=== PATIENT | male | born 1995 | race Caucasian/White ===

== ENCOUNTER 2019-02-09 07:15 | Emergency (ER) | payer OTHER ==
[~2019-02-09] VITALS: Ht 182.9 cm; Wt 111.1 kg
--- OUTSIDE RECORDS SUMMARY | 2019-02-09 07:18 | XMS REPORT | Encounter Summary ---
Author Organization Unknown Address [address] [place] [address] Phone [phone] Reason for Visit Medical Complaint Instructions 1. Folliculitis Keflex 500 mg capsule mupirocin 2 % topical ointment folliculitis: care instructions Discussion Note: None recorded. Plan of Care Patient Instructions . Reminders Provider Appointments None recorded. Lab None recorded. Referral None recorded. Procedures None recorded. Surgeries None recorded. Imaging None recorded. Medications Name Start Date Keflex 500 mg capsule Take 1 capsule every 12 hours by oral route for 7 days. mupirocin 2 % topical ointment APPLY A SMALL AMOUNT TO THE AFFECTED AREA BY TOPICAL ROUTE 3 TIMES PER DAY fo 7 days Medications Administered None recorded. Vitals Height Weight BMI Blood Pressure 6 ft 1 in 235 lbs 31 kg/m2 112/76 mm[Hg] Lab Results None recorded. Allergies Code Code System Name Reaction Severity Status Onset NKDA Problems Name Status Onset Date Source Body Mass Index 30+ - Obesity Active 04/22/2018 Procedures None recorded. Vaccine List None recorded. Social History Smoking Status Former Smoker Past Encounters 12/11/2018 Folliculitis Mita Barnes, [facility]: [address] [place] [address], Ph. History of Present Illness Qpvw-Wnkrvxv-Oyddo-Skin Lesion-Bite 1 Reported By: Patient HPI: Location: ; left lower leg. Quality: painful. Severity: worsening. Duration: ; 4-5 days. Context: no new detergents or skin products, no one else with similar rash, no sting or bite. Aggravating factors: ; benadryl cream helped. Associated Symptoms: no fever/chills, no muscle aches, no nausea, no vomiting, no diarrhea Review of Systems:ROS as noted in the HPI Review of Systems Basic Reported By: Patient Physical Exam Adult Basic, Adult Male Complete Reported By: Patient Constitutional: General Appearance: healthy-appearing, well-nourished, well-developed. Level of Distress: NAD. Ambulation: ambulating normally Lungs: Respiratory effort: no dyspnea, no tachypnea, no use of accessory muscles, no intercostal retractions. Auscultation: breath sounds normal, good air movement Cardiovascular: Heart Auscultation: RRR, no murmurs Skin: Inspection and palpation: ; left lower legs noted several erythema pustules around calf
--- OUTSIDE RECORDS SUMMARY | 2019-02-09 07:18 | XMS REPORT | Encounter Summary ---
Author Organization Unknown Address [address] [place] [address] Phone [phone] Reason for Visit Medical Complaint Instructions 1. Acute left otitis media amoxicillin 875 mg tablet fluticasone 50 mcg/actuation nasal spray,suspension rapid flu (A+B) ear infection (otitis media): care instructions 2. Nasal congestion Afrin (oxymetazoline) 0.05 % nasal spray 3. Upper respiratory infection upper respiratory infection (cold): care instructions Discussion Note: None recorded. Plan of Care Patient Instructions Follow up with PCP or go to ER or urgent care if symptoms get worsen Reminders Provider Appointments None recorded. Lab Rapid Flu (A+B) 07/16/2017 [facility] Referral None recorded. Procedures None recorded. Surgeries None recorded. Imaging None recorded. Medications Name Start Date Afrin (oxymetazoline) 0.05 % nasal spray [place]ford 2 sprays twice a day by intranasal route as needed for 3 days. amoxicillin 875 mg tablet Take 1 tablet every 12 hours by oral route after meals for 7 days. fluticasone 50 mcg/actuation nasal spray,suspension Sanford 1 spray twice a day by intranasal route as directed. Medrol (Diallo) 4 mg tablets in a dose pack take as directed Medications Administered None recorded. Vitals Height Weight BMI Blood Pressure 6 ft 1 in 242 lbs 31.9 kg/m2 124/80 mm[Hg] Lab Results Date Name Specimen Result Interpretation Description Value Range Status Address Rapid Flu (A+B) Influenza a negative [facility]: [address] [place] [address] Influenza B negative [facility]: [address] [place] [address] Allergies Code Code System Name Reaction Severity Status Onset NKDA Problems Name Status Onset Date Source Chlamydial Infection Active Encounter Gonorrhea Active Encounter Pharyngitis Active Encounter Upper Respiratory Infection Active Encounter Acute Urinary Tract Infection Active Encounter Procedures None recorded. Vaccine List None recorded. Social History Smoking Status Former Smoker Past Encounters 07/16/2017 Acute Left Otitis Media; Nasal Congestion; Upper Respiratory Infection CHELSE[facility] Linder-C: [address] [place] [address], Ph. [phone] History of Present Illness Ttufv-Ozltejcgzl-Hhatkmr Reported By: Patient HPI: Location: head/sinuses. Quality: nasal/sinus congestion, dry cough. Duration: 3days. Severity: mild. Onset/Timing: gradual. Context: no sick contacts, no foreign travel, non-smoker. Associated Symptoms: no sputum production, no shortness of breath, no wheezing, no change in number of pillows needed to sleep at night, no sweats, no significant weight gain, no significant weight loss, no sore throat, no vomiting, no diarrhea, no rash, no nausea, no fever, no muscle aches, no headache, morning cough; left ear pressure Review of Systems:ROS as noted in the HPI Review of Systems Basic Reported By: Patient Physical Exam Adult Basic, Adult Male Complete, 14-21 Yr Females, Expanded ENT Exam Reported By: Patient Psychiatric: Mental Status: normal communication w/o aids, normal voice quality Eyes: Lids and Conjunctivae: non-injected. Pupils: PERRLA. EOM: EOMI Zhv-Mdhp-Jjexx-Throat: Nose: no lesions on external nose, nares patent, nasal passages clear, no sinus tenderness, nasal discharge--rhinorrhea; erythematous and edematous left nasal turbinates. Lips, Teeth, and Gums: normal dentition, normal lips, normal gums Lungs: Respiratory effort: no tachypnea. Auscultation: clear to auscultation, no wheezing, no rales/crackles, no rhonchi, no retractions Cardiovascular: Heart Auscultation: no murmurs, no gallops, no rub. Apical impulse: not displaced. Rate and rhythm: regular Musculoskeletal:: Motor Strength and Tone: normal strength, normal symmetry, no synkinesis, no facial tic. Extremities: no cyanosis Skin: Inspection and palpation: no rash Lymph Nodes: Cervical: no palpable lymph node enlargement Head/Face: Inspection: atraumatic, no masses, no lesions, no scarring. Palpation of the TMJ: non-tender, no crepitus Ears: Right External ear: normally formed, free of lesions, no outer ear tenderness, no mastoid tenderness. Left External ear: normally formed, free of lesions, no outer ear tenderness, no mastoid tenderness. Right External auditory canal: normal appearance, no obstruction, no erythema, no discharge. Left External auditory canal: no obstruction, no discharge, erythema. Right Tympanic membrane: pearly montalvo, landmarks clear. Left Tympanic membrane: pearly montalvo, landmarks clear, erythematous Nose: Nasal Skin: no lacerations, no scars. Nasal Mucosa: normal, pink and moist. Turbinates: normal size and confrontation Oral Cavity/Mouth: Posterior pharynx: normal
--- OUTSIDE RECORDS SUMMARY | 2019-02-09 07:18 | XMS REPORT | Encounter Summary ---
Author Organization Unknown Address [address] [place] [address] Phone [phone] Reason for Visit Medical Complaint; uti x 2 days Instructions 1. Acute urinary tract infection Bactrim DS 800 mg-160 mg tablet phenazopyridine 200 mg tablet culture, urine CT + NG DNA, PCR, unspecified specimen urinalysis, dipstick Discussion Note: None recorded. Patient educational handouts: No information available. Plan of Care Patient Instructions Increase fluid intake. Take med as prescribed.Wear loose cotton underwear. May take cranberry juice for preventative. If symptoms worsen follow with severe back pain, chills, fever, abdominal pain, seek ER. Avoid intercourse for now until result comes back. Reminders Provider Appointments None recorded. Lab Culture, Urine 04/09/[address] [facility] [address] + NG DNA, PCR, Unspecified Specimen 04/09/2016 [facility] Urinalysis, Dipstick 04/09/2016 [facility] Referral None recorded. Procedures None recorded. Surgeries None recorded. Imaging None recorded. Medications Name Start Date Bactrim DS 800 mg-160 mg tablet Take 1 tablet every 12 hours by oral route as directed for 5 days. phenazopyridine 200 mg tablet Take 1 tablet 3 times a day by oral route as needed for urinary pain for 2 days. Medications Administered None recorded. Vitals Height Weight BMI Blood Pressure 6 ft 1 in 215 lbs 28.4 120/84 Lab Results Date Name Result Description Value Range Status Urinalysis, Dipstick Color : Vianney Clarity : Cloudy Leukocytes : Large Nitrites : Negative Urobilinogen : Normal Protein : Negative Ph : 6.0 Blood : Moderate Specific [place] : 1.010 Ketones : Negative Bilirubin : Negative Glucose Negative Allergies Name Reaction Severity Onset NKDA Problems Name Status Onset Date Source Pharyngitis Active Encounter Upper Respiratory Infection Active Encounter Acute Urinary Tract Infection Active Encounter Procedures None recorded. Vaccine List None recorded. Social History Smoking Status Former Smoker Past Encounters 04/09/2016 Acute Urinary Tract Infection Nat Ibrahim, [employer]: [address] [facility], [place] [address], Ph. History of Present Illness Tdes-AKK-Dudbruk-Hernia Reported By: Patient HPI: Location: bladder. Quality: burning. Duration: started 2 days. Context: no prior history of STDs, no known exposure to STD, sexually active, heterosexual. Modifying factors OTC medication. Associated Symptoms: no fever/chills, no penile lesions/sores, no scrotal lesions/sores, no flank pain, no jaundice, no blood in the urine, no pain during urination, clear penile discharge, burning sensation during urination Review of Systems Basic Reported By: Patient Constitutional: Constitutional: no fever Eyes: Eyes: no eye complaints Hhrc-Xkjv-Qywak-Throat: Ears: no ear complaints. Nose: no nose/sinus problems. Mouth/Throat: no sore throat, no bleeding gums, no mouth complaints, no teeth problems Cardiovascular: Cardiovascular: no chest pain, no shortness of breath, no known heart murmur Respiratory: Respiratory: no cough, no wheezing, no shortness of breath Gastrointestinal: Gastrointestinal: no abdominal pain, no vomiting / diarrhea Genitourinary: Genitourinary: no discharge, dysuria Musculoskeletal: Musculoskeletal: no muscle aches, no muscle weakness, no arthralgias/joint pain, no back pain Skin: Skin: no abnormal / changing mole, no jaundice, no rashes Neurologic: Neurologic: no loss of consciousness, no weakness, no numbness, no seizures, no dizziness, no headaches Physical Exam Adult Basic, Adult Male Complete Constitutional: General Appearance: healthy-appearing, well-nourished, well-developed. Level of Distress: NAD. Ambulation: ambulating normally Psychiatric: Mental Status: active and alert. Orientation: to time, to place, to person Abdomen: Bowel Sounds: normal. Inspection and Palpation: soft, no tenderness, no guarding, no rebound tenderness, no masses, no CVA tenderness. Hernia: none palpable Male : Penis: no lesions, discharge. Scrotum: no swelling, no tenderness. Testes: palpable bilaterally, not enlarged
--- OUTSIDE RECORDS SUMMARY | 2019-02-09 07:18 | XMS REPORT | Encounter Summary ---
Author Organization Unknown Address [address] [place] [address] Phone [phone] Reason for Visit Medical Complaint Instructions 1. Streptococcal sore throat rapid strep group A, throat strep throat: care instructions amoxicillin 875 mg tablet 2. Acute upper respiratory infection upper respiratory infection (cold): care instructions 3. Body mass index 30+ - obesity A healthy lifestyle: care instructions Discussion Note: None recorded. Plan of Care Patient Instructions See care instructions provided. Reminders Provider Appointments None recorded. Lab Rapid Strep Group a, Throat 12/05/2017 [facility] Referral None recorded. Procedures None recorded. Surgeries None recorded. Imaging None recorded. Medications Name Start Date amoxicillin 875 mg tablet Take 1 tablet every 12 hours by oral route after meals for 10 days. Medications Administered None recorded. Vitals Height Weight BMI Blood Pressure 6 ft 1 in 240 lbs 31.7 kg/m2 110/80 mm[Hg] Lab Results Date Name Specimen Result Interpretation Description Value Range Status Address 12/18/2017 Rapid Strep Group a, Throat Result positive [facility]: [address] [place] [address] Swab Location Left and Right tonsillar pillars [facility]: [address] [place] [address] Allergies Code Code System Name Reaction Severity Status Onset NKDA Problems No Known Problems Procedures None recorded. Vaccine List None recorded. Social History Smoking Status Former Smoker Past Encounters 12/05/2017 Streptococcal Sore Throat; Acute Upper Respiratory Infection; Body Mass Index 30+ - Obesity CHELSEY Franco-C: [address] [place] [address], Ph. History of Present Illness Throat-Oral Complaint Reported By: Patient HPI: Location: throat. Quality: sore throat, congested, dry or hacking cough. Severity: moderate, pain level 5/10. Duration: 1 days. Onset/Timing: sudden. Associated Symptoms: no fever, no body aches, no sputum production, no shortness of breath, no wheezing, no diarrhea, no rash, headache, fatigue, sweats, sore throat, vomiting, nausea Review of Systems:ROS as noted in the HPI Review of Systems Basic Reported By: Patient Physical Exam Adult Basic, Adult Male Complete Reported By: Patient Constitutional: General Appearance: healthy-appearing, well-nourished, well-developed. Level of Distress: NAD. Ambulation: ambulating normally Psychiatric: Mental Status: active and alert. Orientation: to time, to place, to person Eyes: Lids and Conjunctivae: non-injected, no discharge, no pallor Cdh-Pevx-Wsimm-Throat: Ears: no lesions on external ear, no outer ear tenderness, EACs clear, TM opacified. Hearing: no hearing loss. Nose: no lesions on external nose, nares patent, no septal deviation, nasal passages clear, no sinus tenderness, nasal discharge, nasal discharge--rhinorrhea, post nasal drip. Lips, Teeth, and Gums: no mouth or lip ulcers, no bleeding gums, normal dentition. Oropharynx: moist mucous membranes, no exudates, erythema, tonsils enlarged 2+ Lungs: Respiratory effort: no dyspnea, no tachypnea, no use of accessory muscles, no intercostal retractions. Auscultation: breath sounds normal Cardiovascular: Heart Auscultation: RRR, no murmurs
--- OUTSIDE RECORDS SUMMARY | 2019-02-09 07:18 | XMS REPORT | Encounter Summary ---
Author Organization Unknown Address [address] [place] [address] Phone [phone] Reason for Visit Medical Complaint Instructions 1. Nasal congestion Medrol (Diallo) 4 mg tablets in a dose pack oral corticosteroids: care instructions using a nasal steroid spray: care instructions 2. Sore throat symptom rapid strep group A, throat sore throat: care instructions 3. Immunization due Discussion Note: None recorded. Plan of Care Patient Instructions Rhinitis is swelling and irritation in the nose. Allergies and infections are often the cause. Your nose may run or feel stuffy. Other symptoms are itchy and sore eyes, ears, throat, and mouth. If allergies are the cause, your doctor may do tests to find out what you are allergic to. You may be able to stop symptoms if you avoid the things that cause them. Your doctor may suggest or prescribe medicine to ease your symptoms. Follow-up care is a burris part of your treatment and safety. Be sure to make and go to all appointments, and call your doctor if you are having problems. It's also a good idea to know your test results and keep a list of the medicines you take. How can you care for yourself at home? If your rhinitis is caused by allergies, try to find out what sets off (triggers) your symptoms. Take steps to avoid these triggers. Avoid yard work. It can stir up both pollen and mold. Do not smoke or allow others to smoke around you. If you need help quitting, talk to your doctor about stop-smoking programs and medicines. These can increase your chances of quitting for good. Do not use aerosol sprays, cleaning products, or perfumes. If pollen is one of your triggers, close your house and car windows during blooming season. Clean your house often to control dust. Keep pets outside. If your doctor recommends zebp-pah-kbctgjk medicines to relieve symptoms, take your medicines exactly as prescribed. Call your doctor if you think you are having a problem with your medicine. Use saline (saltwater) nasal washes to help keep your nasal passages open and wash out mucus and bacteria. You can buy saline nose drops at a grocery store or drugstore. Or you can make your own at home by adding 1 teaspoon of salt and 1 teaspoon of baking soda to 2 cups of distilled water. If you make your own, fill a bulb syringe with the solution, insert the tip into your nostril, and squeeze gently. Blow your nose. When should you call for help? Call your doctor now or seek immediate medical care if: You are having trouble breathing. Watch closely for changes in your health, and be sure to contact your doctor if: Mucus from your nose gets thicker (like pus) or has new blood in it. You have new or worse symptoms. You do not get better as expected. Reminders Provider Appointments None recorded. Lab Rapid Strep Group a, Throat 09/01/2018 [facility] Referral None recorded. Procedures None recorded. Surgeries None recorded. Imaging None recorded. Medications Name Start Date Medrol (Diallo) 4 mg tablets in a dose pack Take 1 dose pk by oral route. Medications Administered None recorded. Vitals Height Weight BMI Blood Pressure 6 ft 1 in 240 lbs 31.7 kg/m2 118/74 mm[Hg] Lab Results Date Name Specimen Result Interpretation Description Value Range Status Address 09/01/2018 Rapid Strep Group a, Throat Result negative [facility]: [address] [place] [address] Swab Location Left and Right tonsillar pillars [facility]: [address] [place] [address] Allergies Code Code System Name Reaction Severity Status Onset NKDA Problems Name Status Onset Date Source Body Mass Index 30+ - Obesity Active 04/22/2018 Procedures None recorded. Vaccine List None recorded. Social History Smoking Status Former Smoker Past Encounters 09/01/2018 Nasal Congestion; Sore Throat Symptom; Immunization Due CHELSEY Barrett-C: [address] [place] [address], Ph. History of Present Illness Ibtnr-Pkykljaojv-Mwwblfk Reported By: Patient HPI: Location: head/sinuses. Quality: sore throat, nasal/sinus congestion. Duration: 1days. Onset/Timing: sudden. Context: no sick contacts, no foreign travel, non- smoker. Modifying factors: OTC medication. Associated Symptoms: no sputum production, no wheezing, no sweats, no vomiting, no diarrhea, no rash, no nausea, no fever, no muscle aches, no headache, sore throat Review of Systems:ROS as noted in the HPI Review of Systems Basic Reported By: Patient Physical Exam Adult Basic, Adult Male Complete Reported By: Patient Constitutional: General Appearance: obese. Level of Distress: NAD. Ambulation: ambulating normally Psychiatric: Mental Status: active and alert. Orientation: to time, to place, to person Nfi-Fhdi-Eijmu-Throat: Ears: no lesions on external ear, no outer ear tenderness, EACs clear, TMs clear. Hearing: no hearing loss. Nose: no lesions on external nose, nares patent, no septal deviation, nasal passages clear, no sinus tenderness, no nasal discharge. Lips, Teeth, and Gums: no mouth or lip ulcers, no bleeding gums, normal dentition. Oropharynx: moist mucous membranes, no erythema, no exudates, tonsils not enlarged Lungs: Respiratory effort: no dyspnea, no tachypnea, no use of accessory muscles, no intercostal retractions. Auscultation: breath sounds normal, good air movement Cardiovascular: Heart Auscultation: RRR, no murmurs
--- OUTSIDE RECORDS SUMMARY | 2019-02-09 07:18 | XMS REPORT | Encounter Summary ---
Author Organization Unknown Address [address] [place] [address] Phone [phone] Reason for Visit Medical Complaint Instructions 1. [...] Keep pets outside. If your doctor recommends gmhv-hfh-nalphfu medicines to relieve symptoms, take your medicines [...] lbs 31.7 kg/m2 118/74 mm[Hg] Lab Results None recorded. Allergies Code Code System Name Reaction Severity Status Onset NKDA Problems Name Status Onset Date Source Body Mass Index 30+ - Obesity Active 04/22/2018 Procedures None recorded. Vaccine List None recorded. Social History Smoking Status Former Smoker Past Encounters 09/01/2018 Nasal Congestion; Sore Throat Symptom; Immunization Due CHELSEY Barrett-[facility]: [address] [place] [address], Ph. History of Present Illness Xxrna-Yermsiprws-Gyacrho Reported By: Patient HPI: Location: head/sinuses. Quality: [...] Orientation: to time, to place, to person Dxq-Xxeq-Wqvub-Throat: Ears: no lesions on external ear, no [...]
--- OUTSIDE RECORDS SUMMARY | 2019-02-09 07:18 | XMS REPORT | Encounter Summary ---
Author Organization Unknown Address [address] [place] [address] Phone [phone] Reason for Visit Medical Complaint Instructions 1. [...] Smoker Past Encounters 12/11/2018 Folliculitis Mita Barnes, [facility]: [address] [place] [address], Ph. History of Present Illness Mvhz-Dcfnxgq-Cylhr-Skin Lesion-Bite 1 Reported By: Patient HPI: Location: [...]
--- OUTSIDE RECORDS SUMMARY | 2019-02-09 07:18 | XMS REPORT | Encounter Summary ---
Author Organization Unknown Address [address] [place] [address] Phone [phone] Reason for Visit Medical Complaint Instructions 1. [...] Interpretation Description Value Range Status Address Rapid Strep Group a, Throat Result negative [facility]: [address] [place] [address] Swab Location Left and Right tonsillar pillars [facility]: [address] [place] [address] Allergies Code Code System Name Reaction Severity Status Onset NKDA Problems No Known Problems Procedures None recorded. Vaccine List None recorded. Social History Smoking Status Former Smoker Past Encounters 12/05/2017 Streptococcal Sore Throat; Acute Upper Respiratory Infection; Body Mass Index 30+ - Obesity ARTHUR FrancoC: [address] [place] [address], Ph. History of Present Illness Throat-Oral Complaint [...] and Conjunctivae: non-injected, no discharge, no pallor Mel-Jbdj-Fczwj-Throat: Ears: no lesions on external ear, no [...]
--- OUTSIDE RECORDS SUMMARY | 2019-02-09 07:18 | XMS REPORT | Encounter Summary ---
Author Organization Unknown Address [address] [place] [id number] Phone [phone] Reason for Visit Medical Complaint Instructions 1. Acute left otitis media amoxicillin 875 mg tablet 2. Allergic rhinitis Discussion Note Acute Otitis Media / Ear Infections Overview How does the ear work? The ear works by receiving sound waves and sending messages to the brain. The outer ear includes the part of the ear you can see and the ear canal. The sound waves go through the ear canal and hit the eardrum and cause it to vibrate. The vibration of the eardrum causes the tiny bones in the ear to move. This movement sends the sound waves to the inner ear. What causes earaches? A tube called the eustachian (say: "lyo-fwub-ntdc") tube connects the middle ear with the back of the nose. Normally this tube lets fluid drain out of the middle ear. If bacteria or viruses infect the lining of your child's eustachian tube, the tube gets swollen and fills with thick mucus. This keeps fluid in the ear from draining normally. Bacteria can grow in the fluid, increasing pressure behind the eardrum and causing pain. The eustachian tubes can become blocked because of allergies, a cold or other infection. In other cases, the adenoids (glands near the ear) become enlarged and block the eustachian tubes. Acute ear infections usually clear up within 1 or 2 weeks. Sometimes, ear infections last longer and become chronic. After an infection, fluid may stay in the middle ear. This may lead to more infections and hearing loss. Why are earaches so common in children? This may be because children's eustachian tubes are shorter and more narrow than those of adults. Most children will have at least 1 ear infection by their third birthday. What is otitis media with effusion? Otitis media with effusion means that there is fluid (effusion) in the middle ear. The middle ear is the space behind the eardrum. Fluid in the middle ear usually doesn't bother children. It almost always goes away on its own in a few weeks to a few months. So, this kind of ear problem doesn't usually need to be treated with antibiotics, unless the fluid doesn't go away. What is swimmer's ear? Swimmer's ear (also called otitis externa) is a type of ear infection. It is an infection of the outer ear and the ear canal. Because the canal is dark and warm, it can easily get infected with bacteria and fungus. Swimmer's ear is different from the kind of infection you get in the middle part of your ear. That kind of infection is called otitis media. Symptoms What are the symptoms of ear infections? The most common symptoms of an acute ear infection are ear pain and fever. If your child is too young to tell you what hurts, he or she may cry or pull at his or her ear. Your child may also be irritable or listless, have trouble hearing, or not feel like eating or sleeping. What are the symptoms of otitis media with effusion? Children who have otitis media with effusion may have the following symptoms: A feeling of fullness in the ear Muffled hearing Fluid that drains from the ears Some pain inside the ear (if your child is too young to speak and tell you his or her ear hurts, he or she may tug at the ear often) Trouble sleeping Irritability Fever Headache Sometimes, otitis media with effusion does not cause any symptoms. What does swimmer's ear feel like? Symptoms of swimmer's ear include: Pain or itching in the outer part of the ear (the pain is often worse when the ear moves, such as when you are chewing) A stuffy or plugged-up feeling in the affected ear Fluid draining from the affected ear Decreased or muffled hearing If left untreated, the affected ear can become swollen and very painful to the touch. The fluid may become more pus-like and the muffled of decreased hearing may become worse. Causes & Risk Factors What causes otitis media with effusion? Fluid may build up in the middle ear for several reasons. When a child has a cold, the middle ear may produce fluid just like the nose does. A tube called the eustachian (say: "rnm-azlr-lhps") connects the middle ear with the back of the nose. Normally, the eustachian tube lets fluid drain out of the middle ear. However, bacteria or viruses can infect the lining of your child's eustachian tube causing it to swell. The adenoids (glands near the ear) can also become enlarged and block the eustachian tubes. It is also not a good idea to let your baby fall asleep with a bottle or to leave a bottle in the crib. Drinking while lying down may also block the eustachian tubes. If the eustachian tubes are blocked, fluid in the ear cannot drain normally. If bacteria grow in the middle ear fluid, an effusion can become a middle ear infection (acute otitis). This will usually increase pressure behind the eardrum and cause a lot of pain. The eardrum will become red and bulging. If this happens, your child may need to be treated with antibiotics. Children who have frequent ear infections can also develop otitis media with effusion after their infection is gone if the fluid stays in the middle ear. Children may be at higher risk for ear infections if they: Are around people who smoke. Have had previous ear infections. Have a family history of ear infections. Attend day care (because they are exposed to more germs and viruses). Were born prematurely or with a low weight. Have frequent colds or other infections. Take a bottle to bed. Use a pacifier. Are male (boys tend to get more ear infections than girls). Have nasal speech (caused by large adenoids that block the eustachian tube). Have allergies with nasal congestion. What causes swimmer's ear? Several things can make swimmer's ear more likely, including the following: If you swim or shower a lot, too much water can get into your ears. Water removes the protective ear wax, which makes it easier for germs and fungus to grow. Cleaning your ears can remove the protective wax layer and lead to infection. If you injure the skin in the ear canal by putting your finger or some object (such as a cotton swab or a pencil) in your ear, an infection can develop in the canal. Skin conditions (such as psoriasis) that occur in other parts of the body can also occur in the ear canal and cause an infection. Bacteria from products you use in your hair (such as hairspray or hair dye) can get trapped in the ear canal and cause an infection. Treatment What is the treatment for ear infections? The treatment for ear infections may include any of the following: If your doctor thinks the infection is caused by bacteria, he or she may prescribe an antibiotic. (Antibiotics don't work for infections caused by viruses.) It's very important to follow the directions for giving your child the medicine. Pain relievers like acetaminophen (brand names: Children's or Infants' Tylenol) and ibuprofen (brand names: Children's Advil or Children's Motrin) can help make your child feel better and reduce fever. Never give your child aspirin. Aspirin has been linked to Olivia's syndrome. Olivia's syndrome is a serious illness that can lead to . Doctors recommend that parents should not give aspirin to children younger than 18 years of age. A warm (not hot) heating pad held over the ear can also help relieve pain from the earache. Your doctor may also prescribe ear drops to relieve pain. FDA Warning The. U.S. Food and Drug Administration (FDA) advises against the use of ear candles. Ear candles can cause serious injuries and there is no evidence to support their effectiveness. For more information, please visit the FDA Web site [http://www.fda.gov/] . How is otitis media with effusion treated? If your child is older than 6 months of age and only has mild symptoms, the best treatment is to let the fluid go away on its own. You can give your child an nxtg-oxf-zzudnfl pain reliever, such as acetaminophen, (one brand: Children's Tylenol) if he or she is uncomfortable. A warm, moist cloth placed over the ear may also help. Usually the fluid goes away in 2 to 3 months, and hearing returns to normal. Your doctor may want to check your child again at this time to see if fluid is still present. Will my child need antibiotics? Your child may need antibiotics if fluid is still there after a few months and is causing hearing loss or problems in both ears. For this reason, your child's ears should be checked a few months after an ear infection. If the fluid is still there, a hearing test may be the next step. Your doctor may also recommend antibiotics if your child is under 6 months of age or gets frequent middle ear infections. Why not just try antibiotics right now? Giving your child unnecessary antibiotics can be harmful. After each course of antibiotics, the germs in the nose and throat are more likely to become resistant. Resistant germs can't be killed by the usual antibiotics. More expensive and powerful antibiotics have to be used. Some of these antibiotics must be given in the hospital and their side effects can be very unpleasant or even dangerous. Since fluid in the ears doesn't usually bother children, it's better to wait and only give antibiotics when they are necessary. What if the fluid doesn't go away on its own? If the fluid stays for more than a few months, your doctor may want to check your child's hearing. Your doctor may recommend ear tubes (also called tympanostomy tubes) to drain the fluid. Ear tubes may also decrease the number of ear infections your child gets. What are ear tubes? Ear tubes are tiny plastic tubes that help balance the pressure in your child's ears. They allow air into the middle ear so that fluid can drain out down the eustachian tube. They're put into the eardrum (which is also called the tympanic membrane) during surgery and stay in place for an average of 6 to 9 months. The tubes are usually left in place until they fall out on their own or your doctor decides your child no longer needs them. Sometimes, another set of tubes may be needed. Placing tubes in the ears requires an operation and has some risks. Your child will need general anesthesia when the tube is inserted. Your doctor will talk with you about the risks if he or she thinks your child needs ear tubes. How is swimmer's ear treated? Your doctor will look in your ear canal and remove any drainage or pus. Your doctor will check your eardrum to make sure there's no other infection. Most swimmer's ear infections can be treated with ear drops that contain antibiotics to fight infection and medicine to reduce itching and swelling. You can also take an tjwc-nim-vxwejla pain medicine to relieve pain, such as ibuprofen (some brands: Advil, Motrin). How should I use ear drops? Your doctor will tell you how long and how often to use your ear drops. Warm the bottle in your hands before putting the drops in your ear. Using warm ear drops may prevent discomfort when the drops go in. Moving the earlobe back and forth after putting the drops in will also help the medicine go deep into the ear canal. What else can I do for swimmer's ear? Follow your doctor's directions carefully and use all of your medicine(s). Swimmer's ear can be hard to treat. Here are some things that will help you get better: Keep your ear as dry as possible for 7 to 10 days. Take baths instead of showers. Try to keep water out of your ears when you wash your hair. Use a cotton ball to protect your ear from water while bathing (but don't stuff the cotton into the ear canal). Don't swim or play other water sports. If you're on a swim team, ask your doctor before you return to swimming. Don't put anything except the prescribed medicine in your ears. Scratching and rubbing will only make swimmer's ear worse. Symptoms are usually much better in 3 days. They should be completely gone in 10 days. If you're not better by then, call your doctor. Complications Will earaches hurt my child's hearing? Middle ear infections and fluid in the ear are the most common causes of temporary hearing loss in children. Children who have ongoing problems with hearing may have trouble developing their speech and language skills. For this reason, it is important to talk with your doctor if your child has repeated ear infections. Prevention How can I help prevent ear infections from returning? Some children seem to get many ear infections. If your child has had 3 ear infections in 6 months or 4 in 1 year, your doctor may suggest that your child take a low dose of antibiotic every day, usually during the winter, when these infections are most common. Your doctor may want to see your child a few times when he or she is taking the antibiotic to make sure another ear infection does not happen. How can I prevent swimmer's ear? The best way to prevent swimmer's ear is to keep the ear canal's natural defenses against infection working well. Follow these tips: Never put anything in the ear canal (cotton swabs, your finger, paper clips, liquids or sprays). This can damage or irritate the skin. If your ears itch a lot, see your doctor. Leave ear wax alone. If you think your ear wax affects your hearing, see your doctor to be sure there's no other cause. Keep your ears as dry as possible. Use a towel to dry your ears well after swimming or showering. Help the water run out of your ears by turning your head to each side and pulling the earlobe in different directions. A executive chairman of the board set on the lowest heat and speed can also help to dry ears. Be sure to hold it several inches from your ear. If you swim or surf, use a bathing cap or wet suit brandt to keep water out of your ears. There are also special earplugs designed to keep water out of your ears while you are swimming. Questions to Ask Your Doctor My ear hurts and itches. Could I have swimmer's ear? How can I make my child more comfortable? When should I call my doctor? If my child has frequent ear infections, will he/she have to have ear tubes? If my child gets several ear infections, could he/she have trouble hearing? Is there anything I can do to help my child hear better? My child has allergies. Will he/she be more likely to get ear infections? When will my doctor prescribe antibiotics for my child? How often will my child need to see the doctor if he/she has frequent ear infections? If fluid drains from my child's ear, should I call the doctor right away? References Appropriate Use of Antibiotics for URIs in Children: Part I. Otitis Media and Acute Sinusitis by KISHA Kidd M.D., M.P.H., B Jennifer Vee., JIM Ontiveros M.D., M.P.H., and The Pediatric URI Consensus Team([place] [employer] 03/10/98, [email or web address] [[email or web address]] ) Otitis Externa: A Practical Guide to Treatment and Prevention by Terri Perez M.D. ([place] [employer] 08/08/00, [email or web address] [[email or web address]] ) Retrieved from [employer] Patient educational handouts: No information available. Plan of Care Patient Instructions Take your prescribed medication and over the counter medications as directed. If you experience high fever over 101F, shortness of breath, persistent wheezing, severe pain, vomiting, or dizziness, please go to the ER. If you smoke, think about quitting. Quitting smoking has been shown to have immediate and long-term health benefits. Eat a heart healthy diet and exercise for at least 150 minutes per week. Follow up with your Primary Care Provider. Reminders Provider Appointments None recorded. Lab None recorded. Referral None recorded. Procedures None recorded. Surgeries None recorded. Imaging None recorded. Medications Name Start Date amoxicillin 875 mg tablet Take 1 tablet every 12 hours by oral route for 10 days. azithromycin 500 mg tablet TK 2 T PO FOR 1 DAY cefixime 200 mg/5 mL oral suspension Take 10 mL every day by oral route as directed for 1 day. phenazopyridine 200 mg tablet TK 1 T PO TID PRN promethazine 25 mg tablet TK 1 T PO QID PRN NV sulfamethoxazole 800 mg-trimethoprim 160 mg tablet TK 1 T PO Q 12 H Medications Administered None recorded. Vitals Height Weight BMI Blood Pressure 6 ft 1 in 220 lbs 29 kg/m2 116/80 mm[Hg] Lab Results None recorded. Allergies Code Code System Name Reaction Severity Onset NKDA Problems Name Status Onset Date Source Chlamydial Infection Active Encounter Gonorrhea Active Encounter Pharyngitis Active Encounter Upper Respiratory Infection Active Encounter Acute Urinary Tract Infection Active Encounter Procedures None recorded. Vaccine List None recorded. Social History Smoking Status Former Smoker Past Encounters 11/29/2016 Acute Left Otitis Media; Allergic Rhinitis Ernesto Tolentinoen, [facility]: [address] [place] [address], Ph. History of Present Illness Ear Complaint Reported By: Patient HPI: Location: left. Quality: sharp; aching. Severity: continuous, current pain 5/10; was 10/10 earlier this morning. Duration: constant. Onset/Timing: still present. Context: no sick contacts, no recent swimming/water in ear, no head trauma, not grinding teeth, no recent air travel, exposure to second hand smoke. Associated Symptoms: no discharge from the ears, no hearing loss, no popping noise in the ears, no ringing in the ears, no fever, no chills, no earache, no dizziness, no vertigo, no headache, no muscle aches, nose/sinus problems; irritated sore throat Review of Systems Basic Reported By: Patient Constitutional: Constitutional: no fever Eyes: Eyes: no eye complaints Hwow-Ohtt-Wrflw-Throat: Ears: no ear complaints. Nose: nose/sinus problems. Mouth/Throat: no bleeding gums, no mouth complaints, no teeth problems, sore throat Cardiovascular: Cardiovascular: no chest pain, no shortness of breath, no known heart murmur Respiratory: Respiratory: no cough, no wheezing, no shortness of breath Gastrointestinal: Gastrointestinal: no abdominal pain, no vomiting / diarrhea Genitourinary: Genitourinary: no urinary complaints, no discharge Musculoskeletal: Musculoskeletal: no muscle aches, no muscle weakness, no arthralgias/joint pain, no back pain Skin: Skin: no abnormal / changing mole, no jaundice, no rashes Neurologic: Neurologic: no loss of consciousness, no weakness, no numbness, no seizures, no dizziness, no headaches Physical Exam Adult Basic Reported By: Patient Constitutional: General Appearance: healthy-appearing, well-nourished, well-developed. Level of Distress: NAD. Ambulation: ambulating normally Psychiatric: Mental Status: active and alert. Orientation: to time, to place, to person Eyes: Lids and Conjunctivae: non-injected, no discharge, no pallor. Pupils: PERRLA. Corneas: grossly intact. EOM: EOMI. Lens: clear. Sclerae: non-icteric. Vision: acuity grossly intact Juh-Usxu-Ggqgl-Throat: Ears: no lesions on external ear, no outer ear tenderness, EACs clear, TM erythematous, middle ear fluid. Hearing: no hearing loss. Nose: no lesions on external nose, nares patent, no septal deviation, nasal passages clear, no sinus tenderness, nasal discharge--rhinorrhea, post nasal drip. Lips, Teeth, and Gums: no mouth or lip ulcers, no bleeding gums, normal dentition. Oropharynx: moist mucous membranes, no erythema, no exudates, tonsils enlarged 3+ Neck: Neck: supple, trachea midline, no masses, FROM. Lymph Nodes: no cervical LAD, no supraclavicular LAD. Thyroid: no enlargement, non-tender, no nodules Lungs: Respiratory effort: no dyspnea, no tachypnea, no use of accessory muscles, no intercostal retractions. Auscultation: breath sounds normal Cardiovascular: Heart Auscultation: RRR, no murmurs Neurologic: Gait and Station: normal gait, normal station. Cranial Nerves: grossly intact. Sensation: grossly intact Skin: Inspection and palpation: no rash, no lesions, no ulcer, no abnormal nevi, no induration, no nodules, good turgor, no jaundice. Nails: normal Back: Thoracolumbar Appearance: normal curvature Notes: declined strep test
--- OUTSIDE RECORDS SUMMARY | 2019-02-09 07:18 | XMS REPORT | Encounter Summary ---
Author Organization Unknown Address [address] [place] [address] Phone [phone] Reason for Visit Medical Complaint Instructions 1. Upper respiratory infection upper respiratory infection (cold): care instructions benzonatate 200 mg capsule Zithromax Z-Diallo 250 mg tablet 2. Rhinitis rapid flu (A+B) rhinitis: care instructions Medrol (Diallo) 4 mg tablets in a dose pack oral corticosteroids: care instructions 3. Sore throat symptom sore throat: care instructions rapid strep group A, throat Lidocaine Viscous 2 % mucosal solution 4. Body mass index 30+ - obesity body mass index: care instructions learning about healthy weight 5. Counseling influenza (flu) vaccine (inactivated or recombinant): what you need to know Tdap (tetanus, diphtheria, pertussis) vaccine: what you need to know Discussion Note: None recorded. Plan of Care Patient Instructions An upper respiratory infection, or URI, is an infection of the nose, sinuses, or throat. URIs are spread by coughs, sneezes, and direct contact. The common cold is the most frequent kind of URI. The flu and sinus infections are other kinds of URIs. Almost all URIs are caused by viruses. Antibiotics won't cure them. But you can treat most infections with home care. This may include drinking lots of fluids and taking qafw-jyq-vbazzhw pain medicine. You will probably feel better in 4 to 10 days. The doctor has checked you carefully, but problems can develop later. If you notice any problems or new symptoms, get medical treatment right away. Follow-up care is a burris part of your treatment and safety. Be sure to make and go to all appointments, and call your doctor if you are having problems. It's also a good idea to know your test results and keep a list of the medicines you take. How can you care for yourself at home? To prevent dehydration, drink plenty of fluids, enough so that your urine is light yellow or clear like water. Choose water and other caffeine-free clear liquids until you feel better. If you have kidney, heart, or liver disease and have to limit fluids, talk with your doctor before you increase the amount of fluids you drink. Take an guel-ovr-agedzyz pain medicine, such as acetaminophen (Tylenol), ibuprofen (Advil, Motrin), or naproxen (Aleve). Read and follow all instructions on the label. Before you use cough and cold medicines, check the label. These medicines may not be safe for young children or for people with certain health problems. Be careful when taking jdpi-daa-pmimfsa cold or flu medicines and Tylenol at the same time. Many of these medicines have acetaminophen, which is Tylenol. Read the labels to make sure that you are not taking more than the recommended dose. Too much acetaminophen (Tylenol) can be harmful. Get plenty of rest. Do not smoke or allow others to smoke around you. If you need help quitting, talk to your doctor about stop-smoking programs and medicines. These can increase your chances of quitting for good. When should you call for help? Call 911 anytime you think you may need emergency care. For example, call if: You have severe trouble breathing. Call your doctor now or seek immediate medical care if: You seem to be getting much sicker. You have new or worse trouble breathing. You have a new or higher fever. You have a new rash. Watch closely for changes in your health, and be sure to contact your doctor if: You have a new symptom, such as a sore throat, an earache, or sinus pain. You cough more deeply or more often, especially if you notice more mucus or a change in the color of your mucus. You do not get better as expected. Reminders Provider Appointments None recorded. Lab Rapid Strep Group a, Throat 12/21/2018 [facility] Rapid Flu (A+B) 12/21/2018 [facility] Referral None recorded. Procedures None recorded. Surgeries None recorded. Imaging None recorded. Medications Name Start Date benzonatate 200 mg capsule Take 1 capsule 3 times a day by oral route for 10 days. Lidocaine Viscous 2 % mucosal solution Take 15 mL every 3 hours by oral route as needed. Medrol (Diallo) 4 mg tablets in a dose pack Take 1 dose pk by oral route. mupirocin 2 % topical ointment APPLY A SMALL AMOUNT TO THE AFFECTED AREA BY TOPICAL ROUTE 3 TIMES PER DAY fo 7 days Zithromax Z-Diallo 250 mg tablet TAKE 2 TABLETS (500 MG) BY ORAL ROUTE ONCE DAILY FOR 1 DAY THEN 1 TABLET (250 MG) BY ORAL ROUTE ONCE DAILY FOR 4 DAYS Medications Administered None recorded. Vitals Height Weight BMI Blood Pressure 6 ft 1 in 235 lbs 31 kg/m2 116/76 mm[Hg] Lab Results Date Name Specimen Result Interpretation Description Value Range Status Address Rapid Flu (A+B) Influenza a negative [facility]: [address] [place] [address] Influenza B negative [facility]: [address] [place] [address] Rapid Strep Group a, Throat Result negative [facility]: [address] [place] [address] Swab Location Left and Right tonsillar pillars [facility]: [address] [place] [address] Allergies Code Code System Name Reaction Severity Status Onset NKDA Problems Name Status Onset Date Source Body Mass Index 30+ - Obesity Active 04/22/2018 Procedures None recorded. Vaccine List None recorded. Social History Smoking Status Former Smoker Past Encounters 12/21/2018 Upper Respiratory Infection; Rhinitis; Sore Throat Symptom; Body Mass Index 30+ - Obesity; Counseling Lila Lane, CHELSEY-C: [address] [place] [address], Ph. 12/11/2018 Folliculitis Mita Molly QUALITY ASSURANCE MONITOR CHASSIS-C: [address] [place] [address], Ph. History of Present Illness Dwruh-Bnulzvvxrk-Fydcyxw Reported By: Patient HPI: Location: head/sinuses, throat. Quality: sore throat, nasal/sinus congestion. Duration: 4days. Severity: moderate. Context: no sick contacts, no foreign travel, non-smoker. Modifying factors: OTC medication. Associated Symptoms: no sputum production, no shortness of breath, no wheezing, no change in number of pillows needed to sleep at night, no sweats, no significant weight gain, no significant weight loss, no morning cough, no vomiting, no diarrhea, no rash, no nausea, no fever, no muscle aches, sore throat, headache; nasal congestion, watery eyes Review of Systems:ROS as noted in the HPI Review of Systems Basic Reported By: Patient Physical Exam Adult Basic, Adult Male Complete Reported By: Patient Constitutional: General Appearance: obese. Level of Distress: NAD. Ambulation: ambulating normally Psychiatric: Mental Status: active and alert. Orientation: to time, to place, to person Bje-Ahht-Uawnp-Throat: Ears: no lesions on external ear, no [...]
--- OUTSIDE RECORDS SUMMARY | 2019-02-09 07:18 | XMS REPORT | Continuity of Care Document ---
Author Author [employer] Address Unknown Phone Unavailable Care Team Providers Care Estimator And Drafter Name Role Phone [employer] Unavailable Unavailable Problems Problem Status Onset Date Classification Date Reported Comments Source Counseling 12/21/2018 Diagnosis 12/21/2018 [facility] Upper respiratory infection 12/21/2018 Diagnosis 12/21/2018 [facility] Rhinitis 12/21/2018 Diagnosis 12/21/2018 [facility] Sore throat symptom 12/21/2018 Diagnosis 12/21/2018 [facility] Folliculitis 12/11/2018 Diagnosis 12/21/2018 [facility] Nasal congestion 09/01/2018 Diagnosis 09/02/2018 [facility] Immunization due 09/01/2018 Diagnosis 09/02/2018 [facility] Elevated blood pressure 06/15/2018 Diagnosis 06/15/2018 [facility] Cough 06/15/2018 Diagnosis 06/15/2018 [facility] Viral upper respiratory tract infection 04/22/2018 Diagnosis 04/22/2018 [facility] Body mass index 30+ - obesity 04/22/2018 Problem 12/21/2018 [facility] Influenza-like symptoms 02/25/2018 Diagnosis 02/25/2018 [facility] Acute tonsillitis 02/25/2018 Diagnosis 02/25/2018 [facility] Acute upper respiratory infection 12/05/2017 Diagnosis 12/18/2017 [facility] Streptococcal sore throat 12/05/2017 Diagnosis 12/18/2017 [facility] Acute left otitis media 07/16/2017 Diagnosis 07/16/2017 [facility] Allergic rhinitis 04/19/2017 Diagnosis 04/19/2017 [facility] Acute sinusitis 04/19/2017 Diagnosis 04/19/2017 [facility] Feeling feverish 04/19/2017 Diagnosis 04/19/2017 [facility] Pain in throat 04/19/2017 Diagnosis 04/19/2017 [facility] Allergic conjunctivitis 01/06/2017 Diagnosis 01/06/2017 [facility] Chlamydial infection Problem 07/16/2017 [facility] Gonorrhea Problem 07/16/2017 [facility] Pharyngitis Problem 07/16/2017 [facility] Acute urinary tract infection Problem 07/16/2017 [facility] Medications Medication Details Route Status Patient Instructions Ordering Provider Order Date Source Azelastine hydrochloride 0.137 MG/ACTUAT Metered Dose Nasal Harper azelastine 137 mcg (0.1 %) nasal spray aerosol Harper 1 spray twice a day by intranasal route as directed for 10 days. Active [facility] Amoxicillin 875 MG Oral Tablet amoxicillin 875 mg tablet Take 1 tablet every 12 hours by oral route after meals for 10 days. Active [facility] Medrol (Diallo) 4 mg tablets in a dose pack Medrol (Diallo) 4 mg tablets in a dose pack Take 1 dose pk by oral route. Active [facility] Azithromycin 500 MG Oral Tablet azithromycin 500 mg tablet TK 2 T PO FOR 1 DAY Active [facility] Cefixime 40 MG/ML Oral Suspension cefixime 200 mg/5 mL oral suspension Take 10 mL every day by oral route as directed for 1 day. Active [facility] Phenazopyridine hydrochloride 200 MG Oral Tablet phenazopyridine 200 mg tablet TK 1 T PO TID PRN Active [facility] Promethazine Hydrochloride 25 MG Oral Tablet promethazine 25 mg tablet TK 1 T PO QID PRN NV Active [facility] Sulfamethoxazole 800 MG / Trimethoprim 160 MG Oral Tablet sulfamethoxazole 800 mg-trimethoprim 160 mg tablet TK 1 T PO Q 12 H Active [facility] Oxymetazoline hydrochloride 0.5 MG/ML Nasal Harper [Afrin] Afrin (oxymetazoline) 0.05 % nasal spray Harper 2 sprays twice a day by intranasal route as needed for 3 days. Active [facility] Fluticasone propionate 0.05 MG/ACTUAT Metered Dose Nasal Harper fluticasone 50 mcg/actuation nasal spray,suspension Harper 2 sprays twice a day by intranasal route as directed for 10 days. Active [facility] benzonatate 100 MG Oral Capsule [Tessalon Perles] Tessalon Perles 100 mg capsule Take 2 capsules 3 times a day by oral route as needed for 10 days. Active [facility] Cephalexin 500 MG Oral Tablet cephalexin 500 mg tablet Take 1 tablet every 12 hours by oral route as directed for 10 days. Active [facility] Lidocaine Hydrochloride 20 MG/ML Mucous Membrane Topical Solution Lidocaine Viscous 2 % mucosal solution Take 15 mL every 3 hours by oral route as needed. Active [facility] Brompheniramine Maleate 0.4 MG/ML / Dextromethorphan Hydrobromide 2 MG/ML / Pseudoephedrine Hydrochloride 6 MG/ML Oral Solution [Bromfed DM] Bromfed DM 2 mg-30 mg-10 mg/5 mL syrup Take 10 mL every 4 hours by oral route. Active [facility] Azithromycin 250 MG Oral Tablet Zithromax Z-Diallo 250 mg tablet TAKE 2 TABLETS (500 MG) BY ORAL ROUTE ONCE DAILY FOR 1 DAY THEN 1 TABLET (250 MG) BY ORAL ROUTE ONCE DAILY FOR 4 DAYS Active [facility] Cephalexin 500 MG Oral Capsule [Keflex] Keflex 500 mg capsule Take 1 capsule every 12 hours by oral route for 7 days. Active [facility] Mupirocin 0.02 MG/MG Topical Ointment mupirocin 2 % topical ointment APPLY A SMALL AMOUNT TO THE AFFECTED AREA BY TOPICAL ROUTE 3 TIMES PER DAY fo 7 days Active [facility] Sulfamethoxazole 800 MG / Trimethoprim 160 MG Oral Tablet [Bactrim] Bactrim DS 800 mg-160 mg tablet Take 1 tablet every 12 hours by oral route as directed for 5 days. Active [facility] benzonatate 200 MG Oral Capsule benzonatate 200 mg capsule Take 1 capsule 3 times a day by oral route for 10 days. Active [facility] Allergies, Adverse Reactions, Alerts No Known Medication Allergies Immunizations No Data Provided for This Section Results Order Name Results Value Reference Range Date Interpretation Comments Source Influenza A negative 12/21/2018 [facility] Influenza B negative 12/21/2018 [facility] RESULT negative 12/21/2018 [facility] SWAB LOCATION Left and Right tonsillar pillars 12/21/2018 [facility] RESULT negative 09/01/2018 [facility] SWAB LOCATION Left and Right tonsillar pillars 09/01/2018 [facility] Influenza A negative 06/15/2018 [facility] Influenza B negative 06/15/2018 [facility] RESULT negative 06/15/2018 [facility] SWAB LOCATION Left and Right tonsillar pillars 06/15/2018 [facility] RESULT negative 04/22/2018 [facility] SWAB LOCATION Left and Right tonsillar pillars 04/22/2018 [facility] RESULT negative 02/25/2018 [facility] RESULT negative 02/25/2018 [facility] SWAB LOCATION Left and Right tonsillar pillars 02/25/2018 [facility] Influenza A negative 02/25/2018 [facility] Influenza B negative 02/25/2018 [facility] RESULT positive 12/18/2017 [facility] SWAB LOCATION Left and Right tonsillar pillars 12/18/2017 [facility] RESULT negative 12/05/2017 [facility] SWAB LOCATION Left and Right tonsillar pillars 12/05/2017 [facility] Influenza A negative 07/16/2017 [facility] Influenza B negative 07/16/2017 [facility] RESULT negative 04/19/2017 [facility] SWAB LOCATION Left and Right tonsillar pillars 04/19/2017 [facility] Influenza A negative 04/19/2017 [facility] Influenza B negative 04/19/2017 [facility] Adenovirus Ag [Presence] in Unspecified specimen by Immunoassay RESULT negative 01/06/2017 [facility] Adenovirus Ag [Presence] in Unspecified specimen by Immunoassay SWAB LOCATION Right Conjunctiva 01/06/2017 [facility] Urinalysis macro (dipstick) panel - Urine COLOR : Vianney 04/09/2016 [facility] Urinalysis macro (dipstick) panel - Urine CLARITY : Cloudy 04/09/2016 [facility] Urinalysis macro (dipstick) panel - Urine LEUKOCYTES : Large 04/09/2016 [facility] Urinalysis macro (dipstick) panel - Urine NITRITES : Negative 04/09/2016 [facility] Urinalysis macro (dipstick) panel - Urine UROBILINOGEN : Normal 04/09/2016 [facility] Urinalysis macro (dipstick) panel - Urine PROTEIN : Negative 04/09/2016 [facility] Urinalysis macro (dipstick) panel - Urine pH : 6.0 04/09/2016 [facility] Urinalysis macro (dipstick) panel - Urine BLOOD : Moderate 04/09/2016 [facility] Urinalysis macro (dipstick) panel - Urine SPECIFIC GRAVITY : 1.010 04/09/2016 [facility] Urinalysis macro (dipstick) panel - Urine KETONES : Negative 04/09/2016 [facility] Urinalysis macro (dipstick) panel - Urine BILIRUBIN : Negative 04/09/2016 [facility] Urinalysis macro (dipstick) panel - Urine GLUCOSE Negative 04/09/2016 [facility] Pathology Reports No Data Provided for This Section Diagnostic Reports No Data Provided for This Section Consultation Notes No Data Provided for This Section Discharge Summaries No Data Provided for This Section History and Physicals No Data Provided for This Section Vital Signs Vital Sign Value Date Comments Source Diastolic (mm Hg) 76 12/21/2018 [facility] Height 73 12/21/2018 [facility] Systolic (mm Hg) 116 12/21/2018 [facility] Weight 235 12/21/2018 [facility] Diastolic (mm Hg) 76 12/11/2018 [facility] Height 73 12/11/2018 [facility] Systolic (mm Hg) 112 12/11/2018 [facility] Weight 235 12/11/2018 [facility] Diastolic (mm Hg) 74 09/01/2018 [facility] Height 73 09/01/2018 [facility] Systolic (mm Hg) 118 09/01/2018 [facility] Weight 240 09/01/2018 [facility] Diastolic (mm Hg) 80 06/15/2018 [facility] Height 73 06/15/2018 [facility] Systolic (mm Hg) 110 06/15/2018 [facility] Weight 230 06/15/2018 [facility] Diastolic (mm Hg) 70 04/22/2018 [facility] Height 73 04/22/2018 [facility] Systolic (mm Hg) 100 04/22/2018 [facility] Weight 249 04/22/2018 [facility] Diastolic (mm Hg) 74 02/25/2018 [facility] Height 73 02/25/2018 [facility] Systolic (mm Hg) 118 02/25/2018 [facility] Weight 230 02/25/2018 [facility] Diastolic (mm Hg) 80 12/05/2017 [facility] Height 73 12/05/2017 [facility] Systolic (mm Hg) 110 12/05/2017 [facility] Weight 240 12/05/2017 [facility] Diastolic (mm Hg) 80 07/16/2017 [facility] Height 73 07/16/2017 [facility] Systolic (mm Hg) 124 07/16/2017 [facility] Weight 242 07/16/2017 [facility] Diastolic (mm Hg) 74 04/19/2017 [facility] Height 73 04/19/2017 [facility] Systolic (mm Hg) 110 04/19/2017 [facility] Weight 220 04/19/2017 [facility] Diastolic (mm Hg) 76 01/06/2017 [facility] Height 73 01/06/2017 [facility] Systolic (mm Hg) 128 01/06/2017 [facility] Weight 220 01/06/2017 [facility] Diastolic (mm Hg) 80 11/29/2016 [facility] Height 73 11/29/2016 [facility] Systolic (mm Hg) 116 11/29/2016 [facility] Weight 220 11/29/2016 [facility] Diastolic (mm Hg) 84 04/09/2016 [facility] Height 73 04/09/2016 [facility] Systolic (mm Hg) 120 04/09/2016 [facility] Weight 215 04/09/2016 [facility] Encounters Location Location Details Encounter Type Encounter Number Reason For Visit Attending Provider ADM Date DC Date Status Source [place] - [facility] - [id number]_Ynrxqznz ALBERTO SchillingP: [address] [place] [address], Ph. [id number] Nat Ibrahim 04/09/2016 [facility] [place] [facility] - [id number]_Ezfqttut ALBERTO CummingsP: [address] [place] [address], Ph. [id number] Ernesto Ibrahim 11/29/2016 [facility] [place] [id number] D[facility] Gu[facility], CHIPPER: [address] [place] [address], Ph. [id number] Daly Guerrero 01/06/2017 [facility] [place] [facility] - [id number]_[place] CHELSEY Salazar-C: [address] [place] [address], Ph. [id number] Lance Ibrahim 04/19/2017 [facility] [place] [facility] - [id number]_Vwzckn [facility] CHELSEY Linder-C: [address] [place] [address], Ph. [phone] [id number] Rosesylvia Ellis 07/16/2017 [facility] [place] [facility] [id number]_Brvrdzgm [facility] CURING MACHINE OPERATOR-C: [address], [place] [address], Ph. [phone] [id number] [facility] 12/05/2017 [facility] [place] [facility] - [id number]_Fniqqkuu [facility], CURING MACHINE OPERATOR-C: [address], [place] [address], Ph. [id number] [facility] 12/05/2017 [facility] [place] [facility] - [id number]_Cgaiznrf Nathaly Kennedy, CURING MACHINE OPERATOR-C: [address], [place] [address], Ph. [id number] Nathaly Kennedy 02/25/2018 [facility] [place] [facility] - [id number]_Schwqiyq Josue Jane, PA-C: [address], [place] [address], Ph. [id number] Josue Jane 04/22/2018 [facility] [place] [facility] - [id number]_Vxhzqmey Lila Lane, CURING MACHINE OPERATOR-C: [address], [place] [address], Ph. [id number] [address] 06/15/2018 [facility] [place] [facility] - [id number]_Nafwpswj Nkechinyere Orisakwe, CURING MACHINE OPERATOR-C: [address], [place] [address], Ph. [id number] Nkechinyere Orisakwe 09/01/2018 [facility] [place] [facility] - [id number]_Fijwacuv Nkechinyere Orisakwe, CURING MACHINE OPERATOR-C: [address], [place] [address], Ph. [id number] Nkechinyere Orisakwe 09/01/2018 [facility] [place] [facility] - [id number]_Reooqavk Mita Barnes, CURING MACHINE OPERATOR-C: [address], [place] [address], Ph. [phone] [id number] Mita Barnes 12/11/2018 [facility] [place] [facility] - [id number]_Sozpdxol Mita Barnes, CURING MACHINE OPERATOR-C: [address], [place] [address], Ph. [id number] Mita Barnes 12/11/2018 [facility] [place] [facility] - [id number]_Qveoqopk Mita Barnes, CURING MACHINE OPERATOR-C: [address], [place] [address], Ph. [id number] Mita Barnes 12/11/2018 [facility] [place] [facility] - [id number]_Lothmhaf Nkechinyere Orisakwe, CURING MACHINE OPERATOR-C: [address], [place] [address], Ph. [id number] [address] 12/21/2018 [facility] Procedures No Data Provided for This Section Assessment and Plan No Data Provided for This Section Plan of Care No Data Provided for This Section Social History Social History Date Source Smoking Status Former Smoker 11/22/2014 [facility] Family History No Data Provided for This Section Advance Directives No Data Provided for This Section Functional Status No Data Provided for This Section
--- OUTSIDE RECORDS SUMMARY | 2019-02-09 07:18 | XMS REPORT | Encounter Summary ---
Author Organization Unknown Address [address] [place] [address] Phone [phone] Reason for Visit Medical Complaint Instructions 1. Viral upper respiratory tract infection fluticasone 50 mcg/actuation nasal spray,suspension 2. Cough Tessalon Perles 100 mg capsule 3. Body mass index 30+ - obesity 4. Sore throat symptom rapid strep group A, throat Discussion Note explained to patient regarding viral vs bacterial infection. Encouraged adequate hydration and fluids. Discussed hand hygiene and CDC guidelines for viral infections. If new, worsening or persistance of symptoms follow up with PCP. If SOB, wheezing, fever, difficulty swallowing or abdominal pain go to ED. Pt verbalizes understanding and agrees with plan of care. May alternate Motrin and Tylenol for fever, pain or discomfort as needed per label instructions. Patient educational handouts: No information available. Plan of Care Reminders Provider Appointments None recorded. Lab Rapid Strep Group a, Throat 04/22/2018 [facility] Referral None recorded. Procedures None recorded. Surgeries None recorded. Imaging None recorded. Medications Name Start Date fluticasone 50 mcg/actuation nasal spray,suspension [place] 2 sprays twice a day by intranasal route as directed for 10 days. Tessalon Perles 100 mg capsule Take 2 capsules 3 times a day by oral route as needed for 10 days. Medications Administered None recorded. Vitals Height Weight BMI Blood Pressure 6 ft 1 in 249 lbs 32.9 kg/m2 100/70 mm[Hg] Lab Results Date Name Specimen Result Interpretation Description Value Range Status Address Rapid Strep Group a, Throat Result negative [facility]: [address] [place] [address] Swab Location Left and Right tonsillar pillars [facility]: [address] [place] [address] Allergies Code Code System Name Reaction Severity Status Onset NKDA Problems Name Status Onset Date Source Body Mass Index 30+ - Obesity Active 04/22/2018 Procedures None recorded. Vaccine List None recorded. Social History Smoking Status Former Smoker Past Encounters 04/22/2018 Viral Upper Respiratory Tract Infection; Cough; Body Mass Index 30+ - Obesity; Sore Throat Symptom Josue Jane PA-C: [address] [place] [address], Ph. History of Present Illness Throat-Oral Complaint Reported By: Patient HPI: Location: throat. Quality: sore throat. Severity: moderate. Duration: <1 day days. Onset/Timing: sudden. Context: no foreign travel, non-smoker, sick contact. Modifying factors: OTC medication. Associated Symptoms: no fever, no body aches, no shortness of breath, no wheezing, no change in number of pillows needed to sleep at night, no sweats, no significant weight gain, no significant weight loss, no morning cough, no vomiting, no diarrhea, no rash, no nausea, headache, yellow sputum, sore throat Review of Systems Basic Reported By: Patient Constitutional: Constitutional: no fever Eyes: Eyes: no eye complaints Wnqo-Ekdg-Gzbxp-Throat: Ears: no ear complaints. Nose: nose/sinus problems. Mouth/Throat: no bleeding gums, no mouth complaints, no teeth problems, sore throat Cardiovascular: Cardiovascular: no chest pain, no shortness of breath, no known heart murmur Respiratory: Respiratory: no wheezing, no shortness of breath, cough Gastrointestinal: Gastrointestinal: no abdominal pain, no vomiting / diarrhea Genitourinary: Genitourinary: no urinary complaints, no discharge Musculoskeletal: Musculoskeletal: no muscle aches, no muscle weakness, no arthralgias/joint pain, no back pain Skin: Skin: no abnormal / changing mole, no jaundice, no rashes Neurologic: Neurologic: no loss of consciousness, no weakness, no numbness, no seizures, no dizziness, no headaches, headache Physical Exam Adult Basic Reported By: Patient Constitutional: General Appearance: obese. Level of Distress: NAD. Ambulation: ambulating normally Psychiatric: Mental Status: active and alert. Orientation: to time, to place, to person Eyes: Lids and Conjunctivae: non-injected, no discharge, no pallor. Pupils: PERRLA. EOM: EOMI. Sclerae: non-icteric. Vision: acuity grossly intact Tni-Rjzj-Dukrg-Throat: Ears: no lesions on external ear, no outer ear tenderness, EACs clear, TMs clear, middle ear fluid. Hearing: no hearing loss. Nose: no lesions on external nose, nares patent, no septal deviation, nasal passages clear, sinus tenderness, nasal discharge, nasal discharge--purulent, nasal discharge--rhinorrhea, post nasal drip. Lips, Teeth, and Gums: no mouth or lip ulcers, no bleeding gums, normal dentition. Oropharynx: moist mucous membranes, no erythema, no exudates, tonsils not enlarged; [place] Neck: Neck: supple, trachea midline, no masses, FROM. Lymph Nodes: no cervical LAD, no supraclavicular LAD Lungs: Respiratory effort: no dyspnea, no tachypnea, no use of accessory muscles, no intercostal retractions. Auscultation: breath sounds normal Cardiovascular: Heart Auscultation: RRR, no murmurs
--- OUTSIDE RECORDS SUMMARY | 2019-02-09 07:18 | XMS REPORT | Encounter Summary ---
Author Organization Unknown Address [address] [place] [address] Phone [phone] Reason for Visit Medical Complaint Instructions 1. Allergic conjunctivitis adenovirus Ag, Immunoassay allergic conjunctivitis in teens: care instructions 2. Allergic rhinitis allergies: care instructions managing your allergies: care instructions saline nasal washes: care instructions azelastine 137 mcg (0.1 %) nasal spray aerosol Discussion Note: None recorded. Plan of Care Reminders Provider Appointments None recorded. Lab Adenovirus Ag, Immunoassay 01/06/2017 [facility] Referral None recorded. Procedures None recorded. Surgeries None recorded. Imaging None recorded. Medications Name Start Date azelastine 137 mcg (0.1 %) nasal spray aerosol [place] 1 spray twice a day by intranasal route as directed for 10 days. Medications Administered None recorded. Vitals Height Weight BMI Blood Pressure 6 ft 1 in 220 lbs 29 kg/m2 128/76 mm[Hg] Lab Results Date Name Specimen Result Interpretation Description Value Range Status Address Adenovirus Ag, Immunoassay Result negative [facility]: [address] [place] [address] Swab Location Right Conjunctiva [facility]: [address] [place] [address] Allergies Code Code System Name Reaction Severity Onset NKDA Problems Name Status Onset Date Source Chlamydial Infection Active Encounter Gonorrhea Active Encounter Pharyngitis Active Encounter Upper Respiratory Infection Active Encounter Acute Urinary Tract Infection Active Encounter Procedures None recorded. Vaccine List None recorded. Social History Smoking Status Former Smoker Past Encounters 01/06/2017 Allergic Conjunctivitis; Allergic Rhinitis Daly Guerrero [employer]: [address] [place] [address], Ph. History of Present Illness Eye Complaint Reported By: Patient HPI: Location: right. Quality: aching. Severity: mild. Duration constant. Onset/Timindays. Context no previous history of Iritis, no previous history of recurrent corneal erosion, no one else with similar symptoms, wears contact lenses. Modifying factors OTC medication. Associated Symptoms: vision intact, no foreign body sensation in eyes, no pain with eye movement, no headache, no fever/chills, no muscle aches, photophobia, pain in the eyes, watery discharge from the eyes Review of Systems:ROS as noted in the HPI Review of Systems None recorded. Physical Exam Adult Basic Reported By: Patient Constitutional: General Appearance: healthy-appearing, well-nourished, well-developed, overweight. Level of Distress: mild distress. Ambulation: ambulating normally Psychiatric: Mental Status: active and alert. Orientation: to time, to place, to person Eyes: Lids and Conjunctivae: no discharge, no pallor, injected. Pupils: PERRLA. Corneas: grossly intact. EOM: EOMI. Lens: clear. Sclerae: non-icteric. Vision: acuity grossly intact, distance acuity: left, with correction: 20/20, distance acuity: right, with correction: 20/20 Wsk-Mmrg-Awuwe-Throat: Nose: no lesions on external nose, nares patent, no septal deviation, nasal passages clear, no sinus tenderness, nasal discharge--rhinorrhea. Lips, Teeth, and Gums: no mouth or lip ulcers, no bleedin g gums, normal dentition. Oropharynx: moist mucous membranes, no erythema, no exudates, tonsils enlarged 1+ Neck: Neck: supple, FROM. Lymph Nodes: no cervical LAD Lungs: Respiratory effort: no dyspnea, no tachypnea, no use of accessory muscles, no intercostal retractions. Auscultation: breath sounds normal Cardiovascular: Heart Auscultation: RRR, no murmurs
--- OUTSIDE RECORDS SUMMARY | 2019-02-09 07:18 | XMS REPORT | Encounter Summary ---
Author Organization Unknown Address [address] [place] [address] Phone [phone] Reason for Visit Medical Complaint Instructions 1. Acute tonsillitis rapid strep group A, throat mononucleosis, heterophile Ab, blood tonsillitis: care instructions Lidocaine Viscous 2 % mucosal solution cephalexin 500 mg tablet culture, respiratory 2. Influenza-like symptoms rapid flu (A+B) 3. Body mass index 30+ - obesity body mass index: care instructions Discussion Note Pt is in NAD; Verbalizes understanding of all instructions with no questions at this time. Plan of Care Patient Instructions Stop Mucinex. Gargle and spit viscous lidocaine as needed for sore throat as directed. Take fluticasone as needed for congestion. [place] one spray in each nostril twice a day. Take a warm, steamy shower, blow your nose thereafter, and spray in each nostril. Tilt your head up for about 10 seconds and breath through your mouth. Do not sniff or snort the medication in or else the medication will go to your throat and not be absorbed appropriately. Take antibiotics as directed. Change toothbrush 24 hrs after starting antibiotic. Alternate with Ibuprofen and acetaminophen every 4hrs as needed for pain/fever/headache. Proper hydration and rest. Return to work/school if free of fever for 24-hrs. Do not share any utensils/cups, no kissing, recommend hand washing after coughing/sneezing/blowing nose and cover face when you do so. Take medications as prescribed. Follow up with your PCP within 2-3 days if symptoms worsen as discussed. Recommend follow a low sodium/fat/carb diet and exercise 30-45 mins/d 3-4 days a week once symptoms resolve. Reminders Provider Appointments None recorded. Lab Rapid Flu (A+B) 02/25/2018 [facility] Rapid Strep Group a, Throat 02/25/2018 [facility] Mononucleosis, Heterophile Ab, Blood 02/25/2018 [facility] Culture, Respiratory 02/25/2018 [facility] Referral None recorded. Procedures None recorded. Surgeries None recorded. Imaging None recorded. Medications Name Start Date cephalexin 500 mg tablet Take 1 tablet every 12 hours by oral route as directed for 10 days. Lidocaine Viscous 2 % mucosal solution Take 15 mL every 3 hours by oral route as needed. Medications Administered None recorded. Vitals Height Weight BMI Blood Pressure 6 ft 1 in 230 lbs 30.3 kg/m2 118/74 mm[Hg] Lab Results Date Name Specimen Result Interpretation Description Value Range Status Address Mononucleosis, Heterophile Ab, Blood Result negative [facility]: [address] [place] [address] Rapid Strep Group a, Throat Result negative [facility]: [address] [place] [address] Swab Location Left and Right tonsillar pillars [facility]: [address] [place] [address] Rapid Flu (A+B) Influenza a negative [facility]: [address] [place] [address] Influenza B negative [facility]: [address] [place] [address] Allergies Code Code System Name Reaction Severity Status Onset NKDA Problems No Known Problems Procedures None recorded. Vaccine List None recorded. Social History Smoking Status Former Smoker Past Encounters 02/25/2018 Acute Tonsillitis; Influenza-like Symptoms; Body Mass Index 30+ - Obesity Nathaly Kennedy, CLEANING ASSOCIATE-C: [address] [place] [address], Ph. History of Present Illness Throat-Oral Complaint Reported By: Patient HPI: Location: throat. Quality: sore throat. Severity: moderate, pain level 6/10. Duration: 6 days. Onset/Timing: sudden. Context: no sick contacts, no foreign travel, non-smoker. Modifying factors: OTC medication, salt water gargles. Associated Symptoms: no fever, no headache, no body aches, no sputum production, no shortness of breath, no wheezing, no change in number of pillows needed to sleep at night, no sweats, no significant weight gain, no significant weight loss, no morning cough, no vomiting, no diarrhea, no rash, no nausea, sore throat; nasal congestion, rhinorrhea, post nasal drip, right ear popping sensation and pain [place]-Wytrz-Ikd Reported By: Patient HPI: Quality: symptoms worse during the day. Duration: 6 days. Context: no ill contacts, no tick/insect bites, no recent travel, no new medications. Associated Symptoms: no fever/chills, no headache, no muscle aches, no rash, no lethargy, cold symptoms, nasal passage blockage (stuffiness), nasal discharge; post nasal drip, right ear popping sensation and pain and sore throat. Modifying Factors OTC medication Note:
Review of Systems Basic Reported By: Patient Constitutional: Constitutional: no fever Eyes: Eyes: no eye complaints Foqw-Pfft-Jcywo-Throat: Ears: ear pain; right ear popping sensation. Nose: nose/sinus problems. Mouth/Throat: no bleeding gums, [...] Orientation: to time, to place, to person Vjb-Zkhd-Uakzs-Throat: Ears: no lesions on external ear, no outer ear tenderness, EACs clear, TMs clear. Nose: no lesions on external nose, nares patent, no septal deviation, nasal passages clear, no sinus tenderness, nasal d ischarge--rhinorrhea, post nasal drip. Lips, Teeth, and Gums: no mouth or lip ulcers, no bleeding gums, normal dentition. Oropharynx: moist mucous membranes, erythema, exudates, tonsils enlarged 3+ Neck: Lymph Nodes: no cervical LAD Lungs: Respiratory effort: no dyspnea, no tachypnea, no use of accessory muscles, no intercostal retractions. Auscultation: breath sounds normal Cardiovascular: Heart Auscultation: RRR, no murmurs Neurologic: Gait and Station: normal gait, normal station
--- OUTSIDE RECORDS SUMMARY | 2019-02-09 07:18 | XMS REPORT | Encounter Summary ---
Author Organization Unknown Address [address] [place] [address] Phone [phone] Reason for Visit Medical Complaint Instructions 1. Acute sinusitis sinusitis: care instructions amoxicillin 875 mg tablet 2. Allergic rhinitis allergies: care instructions managing your allergies: care instructions Medrol (Diallo) 4 mg tablets in a dose pack 3. Feeling feverish rapid flu (A+B) 4. Pain in throat sore throat: care instructions rapid strep group A, throat Discussion Note: None recorded. Plan of Care Patient Instructions consider a trial of flonase and zyrtec if you havent already. may start on antibiotics in 5-6 days if not better. follow up pcp Reminders Provider Appointments None recorded. Lab Rapid Flu (A+B) 04/19/2017 [facility] Rapid Strep Group a, Throat 04/19/2017 [facility] Referral None recorded. Procedures None recorded. Surgeries None recorded. Imaging None recorded. Medications Name Start Date amoxicillin 875 mg tablet Take 1 tablet every 12 hours by oral route for 10 days. Medrol (Diallo) 4 mg tablets in a dose pack take as directed Medications Administered None recorded. Vitals Height Weight BMI Blood Pressure 6 ft 1 in 220 lbs 29 kg/m2 110/74 mm[Hg] Lab Results Date Name Specimen Result Interpretation Description Value Range Status Address Rapid Strep Group a, Throat Result negative [facility]: [address] [place] [address] Swab Location Left and Right tonsillar pillars [facility]: [address] [place] [address] Rapid Flu (A+B) Influenza a negative [facility]: [address] [place] [address] Influenza B negative [facility]: [address] [place] [address] Allergies Code Code System Name Reaction Severity Status Onset NKDA Problems Name Status Onset Date Source Chlamydial Infection Active Encounter Gonorrhea Active Encounter Pharyngitis Active Encounter Upper Respiratory Infection Active Encounter Acute Urinary Tract Infection Active Encounter Procedures None recorded. Vaccine List None recorded. Social History Smoking Status Former Smoker Past Encounters 04/19/2017 Acute Sinusitis; Allergic Rhinitis; Feeling Feverish; Pain in Throat ALBERTO SalazarP-C: [address] [facility], [place] [address], Ph. History of Present Illness Jmrdt-Zlthhgdytk-Mmmogkq Reported By: Patient HPI: Location: head/sinuses, throat. Quality: productive cough, sore throat, nasal/sinus congestion. Duration: 5days. Severity: moderate. Onset/Timing: gradual. Context: no sick contacts, no foreign travel, non-smoker. Modifying factors: OTC medication. Associated Symptoms: no shortness of breath, no wheezing, no change in number of pillows needed to sleep at night, no sweats, no significant weight gain, no significant weight loss, no morning cough, no vomiting, no diarrhea, no rash, no nausea, no fever, no muscle aches, no headache, yellow sputum, sore throat Review of Systems:ROS as noted in the HPI Review of Systems Basic Reported By: Patient Physical Exam Adult Basic, Adult Male Complete Reported By: Patient Constitutional: General Appearance: healthy-appearing, well-nourished, well-developed. Level of Distress: NAD. Ambulation: ambulating normally Psychiatric: Mental Status: active and alert Eyes: Lids and Conjunctivae: non-injected, no discharge Tnl-Pqqh-Ivdcn-Throat: Ears: no lesions on external ear, no outer ear tenderness, EACs clear, TMs clear, TM mobility normal. Hearing: no hearing loss. Nose: no lesions on external nose, sinus tenderness, nasal discharge--rhinorrhea; congestion. Lips, Teeth, and Gums: no mouth or lip ulcers. Oropharynx: moist mucous membranes, no erythema, no exudates, tonsils not enlarged Neck: Neck: trachea midline. Lymph Nodes: no cervical LAD Lungs: Respiratory effort: no dyspnea, no tachypnea, no use of accessory muscles, no intercostal retractions. Auscultation: breath sounds normal, good air movement Cardiovascular: Heart Auscultation: RRR, no murmurs
--- OUTSIDE RECORDS SUMMARY | 2019-02-09 07:18 | XMS REPORT | Encounter Summary ---
Author Organization Unknown Address [address] [place] [address] Phone [phone] Reason for Visit Medical Complaint Instructions 1. Upper respiratory infection upper respiratory infection (cold): care instructions Zithromax Z-Diallo 250 mg tablet 2. Sore throat symptom rapid strep group A, throat rapid flu (A+B) sore throat: care instructions 3. Cough cough: care instructions Bromfed DM 2 mg-30 mg-10 mg/5 mL syrup 4. Body mass index 30+ - obesity body mass index: care instructions learning about healthy weight 5. Elevated blood pressure elevated blood pressure: care instructions dash diet: care instructions blood pressure monitoring education Discussion Note: None recorded. Plan of Care [...] include drinking lots of fluids and taking futp-iht-qwgijai pain medicine. You will probably feel better [...] amount of fluids you drink. Take an sftv-jhg-fkopjhy pain medicine, such as acetaminophen (Tylenol), ibuprofen (Advil, Motrin), or naproxen (Aleve). Read and follow all instructions on the label. Before you use cough and cold medicines, check the label. These medicines may not be safe for young children or for people with certain health problems. Be careful when taking nugl-lak-ozfbmwz cold or flu medicines and Tylenol at [...] recorded. Lab Rapid Strep Group a, Throat 06/15/2018 [facility] Rapid Flu (A+B) 06/15/2018 [facility] Referral None recorded. Procedures None recorded. Surgeries None recorded. Imaging None recorded. Medications Name Start Date Bromfed DM 2 mg-30 mg-10 mg/5 mL syrup Take 10 mL every 4 hours by oral route. Zithromax Z-Diallo 250 mg tablet TAKE 2 TABLETS (500 MG) BY ORAL ROUTE ONCE DAILY FOR 1 DAY THEN 1 TABLET (250 MG) BY ORAL ROUTE ONCE DAILY FOR 4 DAYS Medications Administered None recorded. Vitals Height Weight BMI Blood Pressure 6 ft 1 in 230 lbs 30.3 kg/m2 110/80 mm[Hg] Lab Results Date Name Specimen Result Interpretation Description Value Range Status Address Rapid Flu (A+B) Influenza a negative [facility]: [address] [facility] Influenza B negative [facility]: [address] [facility] Rapid Strep Group a, Throat Result negative [facility]: [address] [facility] Swab Location Left and Right tonsillar pillars [facility]: [address] [place] [address] Allergies Code Code System Name Reaction Severity Status Onset NKDA Problems Name Status Onset Date Source Body Mass Index 30+ - Obesity Active 04/22/2018 Procedures None recorded. Vaccine List None recorded. Social History Smoking Status Former Smoker Past Encounters 06/15/2018 Upper Respiratory Infection; Sore Throat Symptom; Cough; Body Mass Index 30+ - Obesity; Elevated Blood Pressure Shantaljeannine ALBERTO LaneP-C: [address] [place] [address], Ph. History of Present Illness Rzfls-Ofuvqdqbxj-Rnimcjd Reported By: Patient HPI: Location: head/sinuses. Quality: productive cough, nasal/sinus congestion. Duration: 1days. Severity: moderate. Onset/Timing: gradual. Context: no sick contacts, no foreign travel, non-smoker. Associated Symptoms: no sputum production, no shortness of breath, no wheezing, no change in number of pillows needed to sleep at night, no sweats, no significant weight gain, no significant weight loss, no vomiting, no diarrhea, no rash, no nausea, no fever, no muscle aches, no headache, morning cough, sore throat Review of Systems:ROS as noted in the HPI Review of Systems Basic Reported By: Patient Physical Exam Adult Basic, Adult Male Complete Reported By: Patient Constitutional: General Appearance: obese. Level of Distress: NAD. Ambulation: ambulating normally Psychiatric: Mental Status: active and alert. Orientation: to time, to place, to person Fbp-Mkxb-Virta-Throat: Ears: no lesions on external ear, no outer ear tenderness, EACs clear, TMs clear. Hearing: no hearing loss. Nose: no lesions on external nose, nares patent, no septal deviation, nasal passages clear, no sinus tenderness, no nasal discharge. Lips, Teeth, and Gums: no mouth or lip ulcers, no bleeding gums, normal dentition. Oropharynx: moist mucous membranes, no erythema, no exudates, tonsils enlarged 2+ Lungs: Respiratory effort: no dyspnea, no tachypnea, no use of accessory muscles, no intercostal retractions. Auscultation: breath sounds normal, good air movement Cardiovascular: Heart Auscultation: no murmurs, tachycardia
== END 2019-02-09 08:11 | disposition home or self-care (01) ==
LOC: ER 07:15
DX: S61.012A Laceration without foreign body of left thumb without damage to nail, initial encounter (principal); W26.0XXA Contact with knife, initial encounter; Y93.G3 Activity, cooking and baking; Y92.000 Kitchen of unspecified non-institutional (private) residence as the place of occurrence of the external cause
CPT/HCPCS: 99282